=== PATIENT | female | born 1990 | race Caucasian/White ===

== ENCOUNTER 2019-02-08 17:21 | Inpatient (IN) | payer OTHER ==
[2019-02-08 20:43] VITALS: BMI 21.1
--- NOTE | 2019-02-08 22:20 | HP ---
CIWA Score - Admission Criteria [facility]AS Guidelines: Admission for Medically Managed Detox: Requires at least one of the followin. CIWA greater than 12 2. Seizures within the past 24 hours 3. Delirium tremens within the past 24 hours 4. Hallucinations within the past 24 hours 5. Acute intervention needed for co occurring medical disorder 6. Acute intervention needed for co occurring psychiatric disorder 7. Severe withdrawal that cannot be handled at a lower level of care (continued vomiting, continued diarrhea, abnormal vital signs) requiring intravenous medication and/or fluids 8. Admission ROS S - HPI Allergies/Adverse Reactions: Allergies Allergy/AdvReac Type Severity Reaction Status Date / Time No Known Allergies Allergy Verified 02/08/19 20:25 - Ebola screening Have you traveled outside of the country in the last 21 days: No Have you had contact with anyone from an Ebola affected area: No Patient History - Substances abused Heroin Substance route: Injection Frequency: Daily Amount used: 2 bundles Age of first use: 26 Date of last use: 02/07/19 Admission Physical Exam [facility] - Vital Signs Vital Signs: Vital Signs - 24 hr 02/08/19 20:33 Temperature 96.8 F L Pulse Rate 85 Respiratory 16 Rate Blood Pressure 97/70 Urine Drug Screen - Test Device Lot number: [id number] Expiration date: 10/07/20 - Control Is test valid?: Yes - Results Drug screen NEGATIVE: No Urine drug screen results: JONATHAN-Cocaine, MET-Methamphetamine, FEN-Fentanyl, MOP- Opiates
--- NOTE | 2019-02-08 22:25 | HP ---
COWS - Scale Resting Pulse: 1= [place] 81-100 Sweatin=Flushed/Facial Moisture Restless Observation: 1= Difficult to Sit Still Pupil Size: 1= Pupils >than Normal Bone or Joint Aches: 4=Acute Joint/Muscle Pain Runny Nose/ Eye Tearin= Runny Nose/Eyes GI Upset > 30mins: 2= Nausea/Diarrhea Tremor Observation: 4= Gross Tremor/Twitching Yawning Observation: 1= 1-2x During Session Anxiety or Irritability: 2=Irritable/Anxious Goose Flesh Skin: 0=Smooth Skin COWS Score: 20 CIWA Score - Admission Criteria OASAS Guidelines: Admission for Medically Managed Detox: Requires at least one of the followin. CIWA greater than 12 2. Seizures within the past 24 hours 3. Delirium tremens within the past 24 hours 4. Hallucinations within the past 24 hours 5. Acute intervention needed for co occurring medical disorder 6. Acute intervention needed for co occurring psychiatric disorder 7. Severe withdrawal that cannot be handled at a lower level of care (continued vomiting, continued diarrhea, abnormal vital signs) requiring intravenous medication and/or fluids 8. Admission ROS [facility] Chief Complaint: Heroin withdrawal symptoms Allergies/Adverse Reactions: Allergies Allergy/AdvReac Type Severity Reaction Status Date / Time No Known Allergies Allergy Verified 02/08/19 20:25 History of Present Illness: 29 years old checo with 2 years of heroin dependence is seeking admission to detox. Patient has been to previous detox, last at [place], [place] and reports insignificant period of sobriety. Patient denies medical history and denies suicidal ideation at this time. This is her first admission to [facility] Exam Limitations: Clinical Condition - Ebola screening Have you traveled outside of the country in the last 21 days: No Have you had contact with anyone from an Ebola affected area: No - Review of Systems Constitutional: Chills, Malaise, Night Sweats, Changes in sleep, Weakness EENT: reports: Sinus Pressure Respiratory: reports: No Symptoms reported Cardiac: reports: No Symptoms Reported GI: reports: Nausea, Poor Appetite, Poor Fluid Intake, Vomiting, Abdominal cramping : reports: No Symptoms Reported Musculoskeletal: reports: Back Pain Integumentary: reports: Dryness, Flushing Neuro: reports: Tremors Endocrine: reports: No Symptoms Reported Hematology: reports: No Symptoms Reported Psychiatric: reports: No Sypmtoms Reported, Anxious, Depressed Other Systems: Reviewed and Negative Patient History - Patient Medical History Hx Anemia: No Hx Asthma: No Hx Chronic Obstructive Pulmonary Disease (COPD): No Hx Cancer: No Hx Cardiac Disorders: No Hx Congestive Heart Failure: No Hx Hypertension: No Hx Hypercholesterolemia: No Hx Pacemaker: No HX Cerebrovascular Accident: No Hx Seizures: No Hx Dementia: No Hx Diabetes: No Hx Gastrointestinal Disorders: No Hx Liver Disease: No Hx Genitourinary Disorders: No Hx Sexually Transmitted Disorders: No Hx Renal Disease (ESRD): No Hx Thyroid Disease: No Hx Human Immunodeficiency Virus (HIV): No (Negatiive 2019) Hx Hepatitis C: No Hx Depression: Yes (Not on mediation) Hx Suicide Attempt: No (Denies suicidal ideation at this time) Hx Bipolar Disorder: Yes Hx Schizophrenia: No - Patient Surgical History Past Surgical History: No - PPD History Previous Implant?: Yes Documented Results: Negative w/o proof Implanted On Prior [facility] Admission?: Yes PPD to be Administered?: Yes - Reproductive History Patient is a Female of Child Bearing Age (11 -55 yrs old): Yes Last Menstrual Period: 01/23/19 Patient : No - Smoking Cessation Smoking history: Current every day smoker Have you smoked in the past 12 months: Yes Aproximately how many cigarettes per day: 3 Hx Chewing Tobacco Use: No Initiated information on smoking cessation: Yes 'Breaking Loose' booklet given: 02/08/19 - Substance & Tx. History Hx Alcohol Use: No Hx Substance Use: Yes Substance Use Type: Cocaine, Opiates Hx Substance Use Treatment: Yes ([facility]) - Substances abused Heroin Substance route: Injection Frequency: Daily Amount used: 2 bundles Age of first use: 26 Date of last use: 02/07/19 Family Disease History - Family Disease History Family History: Denies Admission Physical Exam [facility] - Vital Signs Vital Signs: Vital Signs - 24 hr 02/08/19 20:33 Temperature 96.8 F L Pulse Rate 85 Respiratory 16 Rate Blood Pressure 97/70 - Physical General Appearance: Yes: Moderate Distress, Anxious HEENTM: Yes: Within Normal Limits, Hearing grossly Normal Respiratory: Yes: Lungs Clear, Normal Breath Sounds, No Respiratory Distress Neck: Yes: Supple Breast: Yes: Breast Exam Deferred Cardiology: Yes: Regular Rhythm, Regular Rate Abdominal: Yes: Normal Bowel Sounds Genitourinary: Yes: Within Normal Limits Back: Yes: Normal Inspection Musculoskeletal: Yes: Within Normal Limits Extremities: Yes: Tremors Neurological: Yes: Within Normal Limits, Alert, Normal Mood/Affect Integumentary: Yes: Within Normal Limits, Warm Lymphatic: Yes: Within Normal Limits - Diagnostic (1) Opioid dependence with withdrawal Current Visit: Yes Status: Acute (2) Nicotine dependence Current Visit: Yes Status: Acute (3) Cocaine dependence with withdrawal Current Visit: Yes Status: Acute Cleared for Admission [facility] - Detox or Rehab [facility] Level of Care: Medically Managed Detox Regimen/Protocol: Methadone Urine Drug Screen - Test Device Lot number: [id number] Expiration date: 10/07/20 - Control Is test valid?: Yes - Results Drug screen NEGATIVE: No Urine drug screen results: JONATHAN-Cocaine, MET-Methamphetamine, FEN-Fentanyl, MOP- Opiates Inpatient Rehab Admission - Rehab Decision to Admit Inpatient rehab admission?: No
[2019-02-08] MEDS ORDERED: MENTHOL/PHENOL 1 EACH UD MM PRN (22:33)
[2019-02-08] MEDS ORDERED: ACETAMINOPHEN 325 MG TABLET (FP) PO PRN ×2 (22:33)
[2019-02-08] MEDS ORDERED: hydrOXYzine PAMOATE 25 MG CAPSULE (FP) PO PRN (22:33)
[2019-02-08] MEDS ORDERED: MAG HYDROX/AL HYDROX/SIMETH 30 ML UNIT-DOSE CUP PO PRN (22:33)
[2019-02-08] MEDS ORDERED: BISMUTH SUBSALICYLATE 524 MG/30 ML UD PO PRN (22:33)
[2019-02-08] MEDS ORDERED: IBUPROFEN 400 MG TABLET (FP) PO PRN (22:33)
[2019-02-08] MEDS ORDERED: MAGNESIUM CITRATE 300 ML BOTTLE PO PRN (22:33)
[2019-02-08] MEDS ORDERED: cloNIDine HCL 0.1 MG TABLET PO PRN (22:33)
[2019-02-08] MEDS ORDERED: METHADONE HCL 10 MG TABLET (FOR DETOX USE ONLY) PO ONE (22:33)
[2019-02-08] MEDS ORDERED: MAGNESIUM HYDROX 2400MG/30ML ORAL SUSPENSION 30 ML CUP PO PRN (22:33)
[2019-02-08] MEDS ORDERED: METHOCARBAMOL 500 MG TABLET PO PRN (22:33)
[2019-02-08] MEDS ORDERED: MELATONIN 5 MG TABLETS PO PRN (22:33)
[2019-02-08] MEDS ORDERED: TUBERCULIN PPD 5 TU/0.1ML VIAL ID ONE (23:26)
[2019-02-09] MEDS ORDERED: METHADONE HCL 10 MG TABLET (FOR DETOX USE ONLY) ONE (09:17)
[2019-02-09] MEDS ORDERED: METHADONE HCL 5 MG TABLET (FOR DETOX USE ONLY) ONE (09:17)
[2019-02-09] MEDS ORDERED: METHADONE (DETOX) 20 MG, METHADONE (DETOX) 5 MG PO ONE (10:00)
[2019-02-09 10:02] LABS: HEMATOCRIT 32.2 % (32.4-45.2); HEMOGLOBIN 10.5 GM/dL (10.7-15.3); MCH 27.4 pg (25.7-33.7); MCHC 32.7 g/dl (32.0-36.0); MEAN CELL VOLUME 83.7 fl (80-96); MEAN PLT VOLUME 8.1 fl (7.5-11.1); PLATELET COUNT 306 K/MM3 (134-434); RBC 3.85 M/mm3 (3.60-5.2); RDW 18.3 % (11.6-15.6)
[2019-02-09] MEDS: NICOTINE 14 MG/24 HOURS TOPICAL PATCH TD SCH (10:15)
[2019-02-09] MEDS: NICOTINE POLACRILEX 2 MG GUM BUC PRN ×4 (10:16→22:08)
[2019-02-09 10:17] LABS: ALBUMIN 2.9 g/dl (3.4-5.0); BILIRUBIN,TOTAL 0.2 mg/dL (0.2-1); BLOOD UREA NITROGEN 14.8 mg/dL (7-18); CALCIUM 8.6 mg/dL (8.5-10.1); CREATININE 0.8 mg/dL (0.55-1.3); TOT PROT 6.6 g/dl (6.4-8.2)
[2019-02-09] MEDS: PRENATAL VITAMINS W/ FOLIC ACID TABLET (FP) PO SCH (10:17)
--- NOTE | 2019-02-09 11:01 | PN ---
[facility]HS COWS - Scale Resting Pulse: 0= [place] 80 or Below Sweatin= Chills/Flushing Restless Observation: 3= Extraneous Movement Pupil Size: 0= Normal to Room Light Bone or Joint Aches: 4=Acute Joint/Muscle Pain Runny Nose/ Eye Tearin= None GI Upset > 30mins: 0= None Tremor Observation of Outstretched Hands: 1= Tremor [place], Not Seen Yawning Observation: 0= None Anxiety or Irritability: 2=Irritable/Anxious Goose Flesh Skin: 0=Smooth Skin COWS Score: 11 S Progress Note (SOAP) Subjective: ANXIETY, SWEATS, FATIGUE. Objective: 02/09/19 11:07 Vital Signs - 24 hr 02/08/19 02/08/19 02/09/19 20:33 23:20 00:30 Temperature 96.8 F L 96.8 F L Pulse Rate 85 81 Respiratory 16 16 18 Rate Blood Pressure 97/70 112/66 02/09/19 02/09/19 02/09/19 03:30 07:41 09:23 Temperature 98.1 F 97.9 F Pulse Rate 73 66 Respiratory 18 18 18 Rate Blood Pressure 100/55 L 105/54 L Laboratory Tests 02/08/19 02/09/19 02/09/19 22:15 07:50 07:50 WBC 5.0 RBC 3.85 Hgb 10.5 L Hct 32.2 L MCV 83.7 MCH 27.4 MCHC 32.7 RDW 18.3 H Plt Count 306 MPV 8.1 Sodium 136 Potassium 4.0 Chloride 102 Carbon Dioxide 30 Anion Gap 4 L BUN 14.8 Creatinine 0.8 Est GFR (CKD-EPI)AfAm 114.66 Est GFR (CKD-EPI)NonAf 98.93 Random Glucose 84 Calcium 8.6 Total Bilirubin 0.2 AST 33 ALT 62 H Alkaline Phosphatase 101 Total Protein 6.6 Albumin 2.9 L POC Urine HCG, Qual Negative H/H 10.5/32.2 ANEMIA Assessment: 02/09/19 11:11 WITHDRAWAL SX Plan: CONTINUE DETOX FEOSOL 325 MG PO DAILY
[2019-02-09] MEDS: FERROUS SO4 325 MG TABLET (FP) PO SCH (13:29)
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
[2019-02-09] MEDS ORDERED: buPROPion HCL 75 MG TABLET PO SCH (15:30)
[2019-02-09] MEDS: buPROPion HCL 75 MG TABLET PO SCH (18:44)
[2019-02-09] MEDS: QUEtiapine FUMARATE 200 MG TABLET PO SCH (22:05)
[2019-02-09] MEDS: THIAMINE HCL 100 MG TABLET (FP) PO SCH (22:05)
[2019-02-09] MEDS: OXcarbazepine 300 MG TABLET (UD) PO SCH (22:05)
[2019-02-09] MEDS: DIVALPROEX SODIUM 500 MG TABLET E.C. PO SCH (22:05)
--- NOTE | 2019-02-10 09:07 | PN ---
[facility]HS COWS - Scale Resting Pulse: 0= [place] 80 or Below Sweatin= Chills/Flushing Restless Observation: 1= Difficult to Sit Still Pupil Size: 1= Pupils >than Normal Bone or Joint Aches: 2= Severe Diffuse Aches Runny Nose/ Eye Tearin= Runny Nose/Eyes GI Upset > 30mins: 2= Nausea/Diarrhea Tremor Observation of Outstretched Hands: 2= Slight Tremor Visible Yawning Observation: 1= 1-2x During Session Anxiety or Irritability: 2=Irritable/Anxious Goose Flesh Skin: 0=Smooth Skin COWS Score: 14 S Progress Note (SOAP) Subjective: alert,irritable,anxious,interrupted sleep,tremor,pain in the body Objective: 02/10/19 09:06 Vital Signs Temperature 98.2 F 02/10/19 06:00 Pulse Rate 62 02/10/19 06:00 Respiratory Rate 18 02/10/19 06:00 Blood Pressure 97/48 L 02/10/19 06:00 O2 Sat by Pulse Oximetry (%) Laboratory Last Values WBC 5.0 K/mm3 (4.0-10.0) 02/09/19 07:50 RBC 3.85 M/mm3 (3.60-5.2) 02/09/19 07:50 Hgb 10.5 GM/dL (10.7-15.3) L 02/09/19 07:50 Hct 32.2 % (32.4-45.2) L 02/09/19 07:50 MCV 83.7 fl (80-96) 02/09/19 07:50 MCH 27.4 pg (25.7-33.7) 02/09/19 07:50 MCHC 32.7 g/dl (32.0-36.0) 02/09/19 07:50 RDW 18.3 % (11.6-15.6) H 02/09/19 07:50 Plt Count 306 K/MM3 (134-434) 02/09/19 07:50 MPV 8.1 fl (7.5-11.1) 02/09/19 07:50 Sodium 136 mmol/L (136-145) 02/09/19 07:50 Potassium 4.0 mmol/L (3.5-5.1) 02/09/19 07:50 Chloride 102 mmol/L (98-107) 02/09/19 07:50 Carbon Dioxide 30 mmol/L (21-32) 02/09/19 07:50 Anion Gap 4 MMOL/L (8-16) L 02/09/19 07:50 BUN 14.8 mg/dL (7-18) 02/09/19 07:50 Creatinine 0.8 mg/dL (0.55-1.3) 02/09/19 07:50 Est GFR (CKD-EPI)AfAm 114.66 02/09/19 07:50 Est GFR (CKD-EPI)NonAf 98.93 02/09/19 07:50 Random Glucose 84 mg/dL (74-106) 02/09/19 07:50 Calcium 8.6 mg/dL (8.5-10.1) 02/09/19 07:50 Total Bilirubin 0.2 mg/dL (0.2-1) 02/09/19 07:50 AST 33 U/L (15-37) 02/09/19 07:50 ALT 62 U/L (13-61) H 02/09/19 07:50 Alkaline Phosphatase 101 U/L (45-117) 02/09/19 07:50 Total Protein 6.6 g/dl (6.4-8.2) 02/09/19 07:50 Albumin 2.9 g/dl (3.4-5.0) L 02/09/19 07:50 POC Urine HCG, Qual Negative 02/08/19 22:15 RPR Titer Nonreactive (NONREACTIVE) 02/09/19 07:50 HIV 1&2 Antibody Screen Negative 02/09/19 07:50 HIV P24 Antigen Negative 02/09/19 07:50 Assessment: 02/10/19 09:07 withdrawal symptom Plan: continue detox
[2019-02-10] MEDS ORDERED: METHADONE HCL 10 MG TABLET (FOR DETOX USE ONLY) PO ONE (10:00)
[2019-02-10] MEDS: OXcarbazepine 300 MG TABLET (UD) PO SCH ×2 (10:28→22:40)
[2019-02-10] MEDS: DIVALPROEX SODIUM 500 MG TABLET E.C. PO SCH ×2 (10:28→22:40)
[2019-02-10] MEDS: PRENATAL VITAMINS W/ FOLIC ACID TABLET (FP) PO SCH (10:29)
[2019-02-10] MEDS: FERROUS SO4 325 MG TABLET (FP) PO SCH (10:29)
[2019-02-10] MEDS: NICOTINE 14 MG/24 HOURS TOPICAL PATCH TD SCH (10:29)
[2019-02-10] MEDS: buPROPion HCL 75 MG TABLET PO SCH (10:29)
[2019-02-10] MEDS: THIAMINE HCL 100 MG TABLET (FP) PO SCH (22:40)
[2019-02-10] MEDS: QUEtiapine FUMARATE 200 MG TABLET PO SCH (22:40)
[2019-02-11] MEDS ORDERED: METHADONE HCL 5 MG TABLET (FOR DETOX USE ONLY) ONE (09:23)
[2019-02-11] MEDS ORDERED: METHADONE HCL 10 MG TABLET (FOR DETOX USE ONLY) ONE (09:23)
[2019-02-11] MEDS ORDERED: METHADONE (DETOX) 10 MG, METHADONE (DETOX) 5 MG PO ONE (10:00)
[2019-02-11] MEDS: OXcarbazepine 300 MG TABLET (UD) PO SCH ×2 (10:49→22:20)
[2019-02-11] MEDS: DIVALPROEX SODIUM 500 MG TABLET E.C. PO SCH ×2 (10:50→22:20)
[2019-02-11] MEDS: FERROUS SO4 325 MG TABLET (FP) PO SCH (10:50)
[2019-02-11] MEDS: PRENATAL VITAMINS W/ FOLIC ACID TABLET (FP) PO SCH (10:50)
[2019-02-11] MEDS: NICOTINE 14 MG/24 HOURS TOPICAL PATCH TD SCH (10:50)
[2019-02-11] MEDS: buPROPion HCL 75 MG TABLET PO SCH (10:50)
--- NOTE | 2019-02-11 10:57 | PN ---
BHS COWS - Scale Resting Pulse: 0= [place] 80 or Below Sweatin= Chills/Flushing Restless Observation: 1= Difficult to Sit Still Pupil Size: 0= Normal to Room Light Bone or Joint Aches: 1= Mild Discomfort Runny Nose/ Eye Tearin= Nasal Congestion GI Upset > 30mins: 1= Stomach Cramp Tremor Observation of Outstretched Hands: 1= Tremor [place], Not Seen Yawning Observation: 1= 1-2x During Session Anxiety or Irritability: 1=Feels Anxious/Irritable Goose Flesh Skin: 0=Smooth Skin COWS Score: 8 BHS Progress Note (SOAP) Subjective: alert,irritable,anxious,interrupted sleep,pain in the body and back Objective: 02/11/19 10:56 Vital Signs Temperature 96.9 F L 02/11/19 06:21 Pulse Rate 68 02/11/19 06:21 Respiratory Rate 16 02/11/19 06:21 Blood Pressure 122/52 L 02/11/19 06:21 O2 Sat by Pulse Oximetry (%) Assessment: 02/11/19 10:57 withdrawal symptom Plan: continue detox
[2019-02-11] MEDS: THIAMINE HCL 100 MG TABLET (FP) PO SCH (22:21)
[2019-02-11] MEDS: QUEtiapine FUMARATE 200 MG TABLET PO SCH (22:21)
[2019-02-12 09:16] VITALS: BP 96/60; PULSE 78; TEMP 97.7
--- NOTE | 2019-02-12 09:56 | PN ---
BHS COWS - Scale Resting Pulse: 0= [place] 80 or Below Sweatin= Chills/Flushing Restless Observation: 1= Difficult to Sit Still Pupil Size: 0= Normal to Room Light Bone or Joint Aches: 1= Mild Discomfort Runny Nose/ Eye Tearin= None GI Upset > 30mins: 0= None Tremor Observation of Outstretched Hands: 0= None Yawning Observation: 1= 1-2x During Session Anxiety or Irritability: 2=Irritable/Anxious Goose Flesh Skin: 0=Smooth Skin COWS Score: 6 S Progress Note (SOAP) Subjective: c/o muscle pain, mild chills, and anxiety. Objective: 02/12/19 09:55 Vital Signs 02/12/19 02/12/19 02/12/19 03:30 07:40 09:13 Temperature 97 F L 97.7 F Pulse Rate 76 78 Respiratory 18 16 16 Rate Blood Pressure 100/61 96/60 Lab Results WBC 5.0 K/mm3 (4.0-10.0) 02/09/19 07:50 RBC 3.85 M/mm3 (3.60-5.2) 02/09/19 07:50 Hgb 10.5 GM/dL (10.7-15.3) L 02/09/19 07:50 Hct 32.2 % (32.4-45.2) L 02/09/19 07:50 MCV 83.7 fl (80-96) 02/09/19 07:50 MCHC 32.7 g/dl (32.0-36.0) 02/09/19 07:50 RDW 18.3 % (11.6-15.6) H 02/09/19 07:50 Plt Count 306 K/MM3 (134-434) 02/09/19 07:50 Sodium 136 mmol/L (136-145) 02/09/19 07:50 Potassium 4.0 mmol/L (3.5-5.1) 02/09/19 07:50 Chloride 102 mmol/L (98-107) 02/09/19 07:50 Carbon Dioxide 30 mmol/L (21-32) 02/09/19 07:50 Anion Gap 4 MMOL/L (8-16) L 02/09/19 07:50 BUN 14.8 mg/dL (7-18) 02/09/19 07:50 Creatinine 0.8 mg/dL (0.55-1.3) 02/09/19 07:50 Random Glucose 84 mg/dL (74-106) 02/09/19 07:50 Calcium 8.6 mg/dL (8.5-10.1) 02/09/19 07:50 Labs noted. Assessment: 02/12/19 09:55 AOX3, in no acute respiratory distress. Full ROM, ambulating in the unit. Mild withdrawal symptoms Plan: continue detox.
[2019-02-12] MEDS ORDERED: METHADONE HCL 10 MG TABLET (FOR DETOX USE ONLY) PO ONE (10:00)
[2019-02-12] MEDS: OXcarbazepine 300 MG TABLET (UD) PO SCH (11:09)
[2019-02-12] MEDS: buPROPion HCL 75 MG TABLET PO SCH (11:09)
[2019-02-12] MEDS: FERROUS SO4 325 MG TABLET (FP) PO SCH (11:10)
[2019-02-12] MEDS: DIVALPROEX SODIUM 500 MG TABLET E.C. PO SCH (11:10)
[2019-02-12] MEDS: NICOTINE 14 MG/24 HOURS TOPICAL PATCH TD SCH (11:13)
[2019-02-12] MEDS: PRENATAL VITAMINS W/ FOLIC ACID TABLET (FP) PO SCH (11:13)
--- NOTE | 2019-02-12 13:29 | DS ---
[facility] Detox Discharge Summary Admission Date: 02/08/19 Discharge Date: 02/12/19 - History Present History: Cocaine Dependence, Opioid Dependence Additional Comments: Pt is medically cleared and is discharged today. Pt completed her detox protocol. Pt was supposed to go home 02/13/19 but requested to leave today. Pt denies any complains at the moment. As per counselor's notes, pt is to follow- up with [facility]. Pt is encouraged to follow-up as discussed with her counselor. Pt verbalized understanding. Pt is alert and oriented x3, and in no respiratory distress. Pertinent Past History: Cocaine and heroine use disorder. - Physical Exam Results Vital Signs: Vital Signs Temperature 97.7 F 02/12/19 09:13 Pulse Rate 78 02/12/19 09:13 Respiratory Rate 16 02/12/19 09:13 Blood Pressure 96/60 02/12/19 09:13 O2 Sat by Pulse Oximetry (%) Lab Results WBC 5.0 K/mm3 (4.0-10.0) 02/09/19 07:50 RBC 3.85 M/mm3 (3.60-5.2) 02/09/19 07:50 Hgb 10.5 GM/dL (10.7-15.3) L 02/09/19 07:50 Hct 32.2 % (32.4-45.2) L 02/09/19 07:50 MCV 83.7 fl (80-96) 02/09/19 07:50 MCHC 32.7 g/dl (32.0-36.0) 02/09/19 07:50 RDW 18.3 % (11.6-15.6) H 02/09/19 07:50 Plt Count 306 K/MM3 (134-434) 02/09/19 07:50 Sodium 136 mmol/L (136-145) 02/09/19 07:50 Potassium 4.0 mmol/L (3.5-5.1) 02/09/19 07:50 Chloride 102 mmol/L (98-107) 02/09/19 07:50 Carbon Dioxide 30 mmol/L (21-32) 02/09/19 07:50 Anion Gap 4 MMOL/L (8-16) L 02/09/19 07:50 BUN 14.8 mg/dL (7-18) 02/09/19 07:50 Creatinine 0.8 mg/dL (0.55-1.3) 02/09/19 07:50 Random Glucose 84 mg/dL (74-106) 02/09/19 07:50 Calcium 8.6 mg/dL (8.5-10.1) 02/09/19 07:50 Labs reviewed. Pertinent Admission Physical Exam Findings: withdrawal symptoms. - Treatment Hospital Course: Detox Protocol Followed, Detoxed Safely, Responded well, Discharged Condition Good - Medication Discharge Medications: Ambulatory Orders Bupropion HCl [Wellbutrin -] 75 mg PO DAILY 02/08/19 Depakote - 500 mg PO BID 02/08/19 Oxcarbazepine 600 mg PO BID 02/08/19 Quetiapine Fumarate [Seroquel] 200 mg PO BID 02/08/19 Quetiapine Fumarate [Seroquel] 400 mg PO HS 02/08/19 - Diagnosis (1) Cocaine dependence with withdrawal Status: Acute (2) Opioid dependence with withdrawal Status: Acute (3) Substance induced mood disorder Status: Acute (4) Bipolar disorder Status: Chronic (5) Nicotine dependence Status: Chronic (6) PTSD (post-traumatic stress disorder) Status: Chronic - AMA Did Patient Leave Against Medical Advice: No
[2019-02-13] MEDS ORDERED: METHADONE HCL 5 MG TABLET (FOR DETOX USE ONLY) PO ONE (06:00)
== END 2019-02-12 12:30 | disposition home or self-care (01) | DRG 773 ==
LOC: YASAS 17:21 → Y6N 22:49
PROVIDERS: ADMIT Surgery; ATTEND Surgery
PROC: HZ2ZZZZ Detoxification Services for Substance Abuse Treatment (ICD-10-PCS; principal; 2019-02-08)
DX: F11.23 Opioid dependence with withdrawal (principal); F14.23 Cocaine dependence with withdrawal; F17.210 Nicotine dependence, cigarettes, uncomplicated; F19.24 Other psychoactive substance dependence with psychoactive substance-induced mood disorder; F19.282 Other psychoactive substance dependence with psychoactive substance-induced sleep disorder; F31.9 Bipolar disorder, unspecified; F43.10 Post-traumatic stress disorder, unspecified; F90.9 Attention-deficit hyperactivity disorder, unspecified type; D64.9 Anemia, unspecified
CPT/HCPCS: 36415; 80053; 80164; 81025; 85027; 86593; 87389

== ENCOUNTER 2020-11-15 16:04 | Inpatient (IN) | payer OTHER ==
[2020-11-15 19:08] VITALS: BMI 25.1
[2020-11-15] MEDS ORDERED: METHADONE HCL 10 MG TABLET (FOR DETOX USE ONLY) PO ONE (20:36)
[2020-11-15] MEDS ORDERED: BISMUTH SUBSALICYLATE 524 MG/30 ML UD PO PRN (20:36)
[2020-11-15] MEDS ORDERED: MENTHOL/PHENOL 1 EACH UD MM PRN (20:36)
[2020-11-15] MEDS ORDERED: MAG HYDROX/AL HYDROX/SIMETH 30 ML UNIT-DOSE CUP PO PRN (20:36)
[2020-11-15] MEDS ORDERED: NICOTINE POLACRILEX 2 MG GUM BUC PRN (20:36)
[2020-11-15] MEDS ORDERED: ACETAMINOPHEN 325 MG TABLET (FP) PO PRN ×2 (20:36)
[2020-11-15] MEDS ORDERED: MAGNESIUM HYDROX 2400MG/30ML ORAL SUSPENSION 30 ML CUP PO PRN (20:36)
[2020-11-15] MEDS ORDERED: ONDANSETRON *ODT* 4 MG TABLET SL PRN (20:36)
[2020-11-15] MEDS ORDERED: MAGNESIUM CITRATE 300 ML BOTTLE PO PRN (20:36)
[2020-11-15] MEDS ORDERED: IBUPROFEN 400 MG TABLET (FP) PO PRN (20:36)
[2020-11-15] MEDS: THIAMINE HCL 100 MG TABLET (FP) PO SCH (21:34)
[2020-11-15] MEDS: METHOCARBAMOL 500 MG TABLET PO PRN (21:35)
[2020-11-15] MEDS: MELATONIN 5 MG TABLETS PO SCH (21:35)
[2020-11-16] MEDS: METHOCARBAMOL 500 MG TABLET PO PRN ×2 (06:15→22:01)
[2020-11-16] MEDS ORDERED: METHADONE HCL 5 MG TABLET (FOR DETOX USE ONLY) ONE (08:46)
[2020-11-16] MEDS ORDERED: METHADONE HCL 10 MG TABLET (FOR DETOX USE ONLY) ONE (08:46)
[2020-11-16] MEDS ORDERED: METHADONE (DETOX) 20 MG, METHADONE (DETOX) 5 MG PO ONE (10:00)
[2020-11-16 10:16] LABS: HEMOGLOBIN 13.6 GM/dL (10.7-15.3); MCH 31.5 pg (25.7-33.7); MCHC 34.1 g/dl (32.0-36.0); MEAN CELL VOLUME 92.3 fl (80-96); MEAN PLT VOLUME 8.4 fl (7.5-11.1); PLATELET COUNT 309 K/MM3 (134-434); RBC 4.34 M/mm3 (3.60-5.2); RDW 12.6 % (11.6-15.6); WHITE BLOOD COUNT 5.8 K/mm3 (4.0-10.0)
[2020-11-16] MEDS: PRENATAL VITAMINS W/ FOLIC ACID TABLET (FP) PO SCH (10:17)
[2020-11-16 10:19] LABS: CALCIUM 9.4 mg/dL (8.5-10.1)
[2020-11-16 10:20] LABS: ALBUMIN 3.8 g/dl (3.4-5.0); BLOOD UREA NITROGEN 13.4 mg/dL (7-18)
[2020-11-16 10:25] LABS: BILIRUBIN,TOTAL 0.4 mg/dL (0.2-1); TOT PROT 7.3 g/dl (6.4-8.2)
[2020-11-16] MEDS: cloNIDine HCL 0.1 MG TABLET PO PRN (12:55)
[2020-11-16] MEDS: hydrOXYzine PAMOATE 25 MG CAPSULE (FP) PO PRN (15:05)
[2020-11-16] MEDS: QUEtiapine FUMARATE 50 MG TABLET PO SCH (21:56)
[2020-11-16] MEDS: MELATONIN 5 MG TABLETS PO SCH (21:56)
[2020-11-16] MEDS: THIAMINE HCL 100 MG TABLET (FP) PO SCH (22:37)
[2020-11-17] MEDS ORDERED: METHADONE HCL 10 MG TABLET (FOR DETOX USE ONLY) PO ONE (10:00)
[2020-11-17] MEDS: PRENATAL VITAMINS W/ FOLIC ACID TABLET (FP) PO SCH (10:16)
[2020-11-17] MEDS: hydrOXYzine PAMOATE 25 MG CAPSULE (FP) PO PRN ×3 (10:16→22:14)
[2020-11-17] MEDS: cloNIDine HCL 0.1 MG TABLET PO PRN (12:35)
[2020-11-17] MEDS: METHOCARBAMOL 500 MG TABLET PO PRN ×2 (13:29→22:14)
[2020-11-17] MEDS ORDERED: COLLOIDAL OATMEAL 1 BAR EACH TP PRN (14:32)
[2020-11-17] MEDS: QUEtiapine FUMARATE 50 MG TABLET PO SCH (22:14)
[2020-11-17] MEDS: MELATONIN 5 MG TABLETS PO SCH (22:14)
[2020-11-17] MEDS: THIAMINE HCL 100 MG TABLET (FP) PO SCH (22:15)
[2020-11-18] MEDS ORDERED: METHADONE HCL 5 MG TABLET (FOR DETOX USE ONLY) ONE (09:47)
[2020-11-18] MEDS ORDERED: METHADONE HCL 10 MG TABLET (FOR DETOX USE ONLY) ONE (09:48)
[2020-11-18] MEDS ORDERED: METHADONE (DETOX) 10 MG, METHADONE (DETOX) 5 MG PO ONE (10:00)
[2020-11-18 10:06] LABS: SARS-CoV-2 NAA Not Detected (Not Detected)
[2020-11-18] MEDS: PRENATAL VITAMINS W/ FOLIC ACID TABLET (FP) PO SCH (10:38)
[2020-11-18] MEDS: hydrOXYzine PAMOATE 25 MG CAPSULE (FP) PO PRN ×3 (10:41→22:21)
[2020-11-18] MEDS: METHOCARBAMOL 500 MG TABLET PO PRN ×2 (10:41→17:18)
[2020-11-18] MEDS ORDERED: QUEtiapine FUMARATE 25 MG TABLET ONE (21:07)
[2020-11-18] MEDS: QUEtiapine FUMARATE 50 MG TABLET PO SCH (22:21)
[2020-11-18] MEDS: THIAMINE HCL 100 MG TABLET (FP) PO SCH (22:21)
[2020-11-18] MEDS: MELATONIN 5 MG TABLETS PO SCH (22:21)
[2020-11-19] MEDS ORDERED: METHADONE HCL 10 MG TABLET (FOR DETOX USE ONLY) PO ONE (10:00)
[2020-11-19] MEDS: PRENATAL VITAMINS W/ FOLIC ACID TABLET (FP) PO SCH (11:11)
[2020-11-19] MEDS: METHOCARBAMOL 500 MG TABLET PO PRN ×2 (11:40→18:15)
[2020-11-19] MEDS: hydrOXYzine PAMOATE 25 MG CAPSULE (FP) PO PRN ×2 (11:41→18:16)
[2020-11-19] MEDS: QUEtiapine FUMARATE 50 MG TABLET PO SCH (23:17)
[2020-11-19] MEDS: THIAMINE HCL 100 MG TABLET (FP) PO SCH (23:17)
[2020-11-19] MEDS: MELATONIN 5 MG TABLETS PO SCH (23:17)
[2020-11-20] MEDS ORDERED: METHADONE HCL 5 MG TABLET (FOR DETOX USE ONLY) PO ONE (06:00)
[2020-11-20 07:31] VITALS: TEMP 97.7
[2020-11-20 09:48] VITALS: BP 98/57; PULSE 69
[2020-11-20] MEDS: PRENATAL VITAMINS W/ FOLIC ACID TABLET (FP) PO SCH (11:09)
== END 2020-11-20 12:25 | disposition home or self-care (01) | DRG 773 ==
LOC: YASAS 16:04 → Y6N 19:24
PROVIDERS: ADMIT Allergy & Immunology; ATTEND Allergy & Immunology
DX: F11.23 Opioid dependence with withdrawal (principal); F14.20 Cocaine dependence, uncomplicated; F17.210 Nicotine dependence, cigarettes, uncomplicated; F19.282 Other psychoactive substance dependence with psychoactive substance-induced sleep disorder; F19.24 Other psychoactive substance dependence with psychoactive substance-induced mood disorder; F31.9 Bipolar disorder, unspecified; F43.10 Post-traumatic stress disorder, unspecified; F90.9 Attention-deficit hyperactivity disorder, unspecified type; R73.9 Hyperglycemia, unspecified; Z62.810 Personal history of physical and sexual abuse in childhood
CPT/HCPCS: 36415; 80053; 81025; 85027; 86780; 93005; 93010; C9803; J0735; U0003; U0005

== ENCOUNTER 2021-05-14 11:25 | Inpatient (IN) | payer OTHER ==
[2021-05-14 12:25] VITALS: BMI 25.7
[2021-05-14] MEDS ORDERED: IBUPROFEN 400 MG TABLET (FP) PO PRN (12:34)
[2021-05-14] MEDS ORDERED: ONDANSETRON *ODT* 4 MG TABLET SL PRN (12:34)
[2021-05-14] MEDS ORDERED: ACETAMINOPHEN 325 MG TABLET (FP) PO PRN ×2 (12:34)
[2021-05-14] MEDS ORDERED: MAGNESIUM CITRATE 300 ML BOTTLE PO PRN (12:34)
[2021-05-14] MEDS ORDERED: cloNIDine HCL 0.1 MG TABLET PO PRN (12:34)
[2021-05-14] MEDS ORDERED: MAGNESIUM HYDROX 2400MG/30ML ORAL SUSPENSION 30 ML CUP PO PRN (12:34)
[2021-05-14] MEDS ORDERED: MAG HYDROX/AL HYDROX/SIMETH 30 ML UNIT-DOSE CUP PO PRN (12:34)
[2021-05-14] MEDS ORDERED: MENTHOL/PHENOL 1 EACH UD MM PRN (12:34)
[2021-05-14] MEDS ORDERED: BISMUTH SUBSALICYLATE 524 MG/30 ML PO PRN (12:34)
[2021-05-14] MEDS ORDERED: methaDONE HCL 10 MG TABLET (FOR DETOX USE ONLY) PO ONE (14:15)
[2021-05-14] MEDS: hydrOXYzine PAMOATE 25 MG CAPSULE (FP) PO SCH ×3 (15:19→22:20)
[2021-05-14] MEDS: METHOCARBAMOL 500 MG TABLET PO PRN (15:19)
[2021-05-14] MEDS: NICOTINE 10 MG CARTRIDGE (INHALER) IH PRN ×2 (17:24→22:21)
[2021-05-14 18:07] LABS: HEMATOCRIT 34.1 % (32.4-45.2); HEMOGLOBIN 11.7 GM/dL (10.7-15.3); MCH 30.4 pg (25.7-33.7); MCHC 34.3 g/dl (32.0-36.0); MEAN CELL VOLUME 88.7 fl (80-96); MEAN PLT VOLUME 7.5 fl (7.5-11.1); PLATELET COUNT 325 10^3/uL (134-434); RBC 3.85 M/mm3 (3.60-5.2); RDW 14.5 % (11.6-15.6); WHITE BLOOD COUNT 7.2 K/mm3 (4.0-10.0)
[2021-05-14 18:08] LABS: ALBUMIN 3.5 g/dl (3.4-5.0); BLOOD UREA NITROGEN 9.1 mg/dL (7-18); CALCIUM 8.7 mg/dL (8.5-10.1)
[2021-05-14 18:11] LABS: CREATININE 0.9 mg/dL (0.55-1.3)
[2021-05-14 18:13] LABS: BILIRUBIN,TOTAL 0.2 mg/dL (0.2-1); TOT PROT 7.2 g/dl (6.4-8.2)
[2021-05-14 19:47] LABS: HIV INTERPRETATION NEGATIVE (NEGATIVE)
[2021-05-14] MEDS: BACITRACIN 0.9 GM PACKET TP SCH (22:20)
[2021-05-14] MEDS: MELATONIN 5 MG TABLETS PO SCH (22:20)
[2021-05-14] MEDS: THIAMINE HCL 100 MG TABLET (FP) PO SCH (22:20)
[2021-05-14] MEDS: QUEtiapine FUMARATE 200 MG TABLET PO SCH (22:20)
[2021-05-15] MEDS: hydrOXYzine PAMOATE 25 MG CAPSULE (FP) PO SCH ×5 (07:27→22:02)
[2021-05-15] MEDS ORDERED: methaDONE HCL 10 MG TABLET (FOR DETOX USE ONLY) ONE (09:28)
[2021-05-15] MEDS: PRENATAL VITAMINS W/ FOLIC ACID TABLET (FP) PO SCH (10:52)
[2021-05-15] MEDS: BACITRACIN 0.9 GM PACKET TP SCH ×2 (10:53→22:02)
[2021-05-15] MEDS: THIAMINE HCL 100 MG TABLET (FP) PO SCH (22:02)
[2021-05-15] MEDS: QUEtiapine FUMARATE 200 MG TABLET PO SCH (22:02)
[2021-05-15] MEDS: MELATONIN 5 MG TABLETS PO SCH (22:03)
[2021-05-16] MEDS: hydrOXYzine PAMOATE 25 MG CAPSULE (FP) PO SCH ×5 (06:26→22:42)
[2021-05-16] MEDS ORDERED: methaDONE HCL 10 MG TABLET (FOR DETOX USE ONLY) PO ONE (10:00)
[2021-05-16] MEDS: PRENATAL VITAMINS W/ FOLIC ACID TABLET (FP) PO SCH (11:50)
[2021-05-16] MEDS: METHOCARBAMOL 500 MG TABLET PO PRN (11:51)
[2021-05-16] MEDS: BACITRACIN 0.9 GM PACKET TP SCH ×2 (13:36→22:42)
[2021-05-16] MEDS: THIAMINE HCL 100 MG TABLET (FP) PO SCH (22:42)
[2021-05-16] MEDS: QUEtiapine FUMARATE 200 MG TABLET PO SCH (22:42)
[2021-05-16] MEDS: MELATONIN 5 MG TABLETS PO SCH (22:42)
[2021-05-17] MEDS: hydrOXYzine PAMOATE 25 MG CAPSULE (FP) PO SCH ×2 (06:02→10:25)
[2021-05-17] MEDS ORDERED: methaDONE HCL 10 MG TABLET (FOR DETOX USE ONLY) ONE (09:41)
[2021-05-17] MEDS: PRENATAL VITAMINS W/ FOLIC ACID TABLET (FP) PO SCH (10:25)
[2021-05-17] MEDS: BACITRACIN 0.9 GM PACKET TP SCH ×2 (10:25→22:21)
[2021-05-17] MEDS: METHOCARBAMOL 500 MG TABLET PO PRN ×2 (12:35→22:22)
[2021-05-17] MEDS: hydrOXYzine PAMOATE 25 MG CAPSULE (FP) PO PRN ×2 (12:36→22:22)
[2021-05-17] MEDS: MELATONIN 5 MG TABLETS PO SCH (22:21)
[2021-05-17] MEDS: QUEtiapine FUMARATE 200 MG TABLET PO SCH (22:21)
[2021-05-17] MEDS: THIAMINE HCL 100 MG TABLET (FP) PO SCH (22:21)
[2021-05-17] MEDS: NICOTINE 10 MG CARTRIDGE (INHALER) IH PRN (22:23)
[2021-05-18] MEDS ORDERED: methaDONE HCL 10 MG TABLET (FOR DETOX USE ONLY) PO ONE (10:00)
[2021-05-18] MEDS: BACITRACIN 0.9 GM PACKET TP SCH ×2 (10:32→22:22)
[2021-05-18] MEDS: PRENATAL VITAMINS W/ FOLIC ACID TABLET (FP) PO SCH (10:33)
[2021-05-18] MEDS: METHOCARBAMOL 500 MG TABLET PO PRN ×2 (10:33→22:23)
[2021-05-18] MEDS: hydrOXYzine PAMOATE 25 MG CAPSULE (FP) PO PRN ×2 (10:33→22:23)
[2021-05-18] MEDS: QUEtiapine FUMARATE 200 MG TABLET PO SCH (22:22)
[2021-05-18] MEDS: THIAMINE HCL 100 MG TABLET (FP) PO SCH (22:22)
[2021-05-18] MEDS: MELATONIN 5 MG TABLETS PO SCH (22:22)
[2021-05-18 23:05] VITALS: PULSE 93
[2021-05-19 07:08] VITALS: BP 84/53; TEMP 97.8
== END 2021-05-19 10:59 | disposition home or self-care (01) | DRG 773 ==
LOC: YASAS 11:25 → Y3N 14:23
PROVIDERS: ADMIT Allergy & Immunology; ATTEND Allergy & Immunology
PROC: HZ2ZZZZ Detoxification Services for Substance Abuse Treatment (ICD-10-PCS; principal; 2021-05-14)
DX: F11.23 Opioid dependence with withdrawal (principal); F14.20 Cocaine dependence, uncomplicated; F17.210 Nicotine dependence, cigarettes, uncomplicated; F19.282 Other psychoactive substance dependence with psychoactive substance-induced sleep disorder; F19.24 Other psychoactive substance dependence with psychoactive substance-induced mood disorder; F31.9 Bipolar disorder, unspecified; F41.9 Anxiety disorder, unspecified; F43.10 Post-traumatic stress disorder, unspecified; F90.9 Attention-deficit hyperactivity disorder, unspecified type; G47.00 Insomnia, unspecified
CPT/HCPCS: 36415; 80053; 81025; 85027; 86780; 87389; C9803; Q0162; U0003; U0005

== ENCOUNTER 2025-05-29 17:17 | Inpatient (IN) | payer OTHER ==
[2025-05-29 17:59] VITALS: BMI 22.4
[2025-05-29] MEDS ORDERED: ACETAMINOPHEN 325 MG TABLET (FP) PO PRN (18:06)
[2025-05-29] MEDS ORDERED: BISMUTH SUBSALICYLATE 524 MG/30 ML PO PRN (18:06)
[2025-05-29] MEDS ORDERED: LOPERAMIDE HCL 2 MG CAPSULE PO PRN (18:06)
[2025-05-29] MEDS ORDERED: IBUPROFEN 400 MG TABLET (FP) PO PRN (18:06)
[2025-05-29] MEDS ORDERED: NICOTINE POLACRILEX 2 MG LOZENGE BC PRN (18:06)
[2025-05-29] MEDS ORDERED: POLYETHYLENE GLYCOL (HEALTHYLAX) 3350 17 GM PACKET PO PRN (18:06)
[2025-05-29] MEDS ORDERED: MAGNESIUM HYDROX 2400MG/30ML ORAL SUSPENSION 30 ML CUP PO PRN (18:06)
[2025-05-29] MEDS ORDERED: MAG HYDROX/AL HYDROX/SIMETH 30 ML UNIT-DOSE CUP PO PRN (18:06)
[2025-05-29] MEDS ORDERED: guaiFENesin 600 MG TABLET.ER (FP) PO PRN (18:06)
[2025-05-29] MEDS ORDERED: BENZONATATE 200 MG CAPSULE PO PRN (18:06)
[2025-05-29] MEDS ORDERED: DICYCLOMINE HCL 10 MG CAPSULE PO PRN (18:06)
[2025-05-29] MEDS ORDERED: NALOXONE (NARCAN) HCL 4 MG/0.1 ML SPRAY NS PRN (18:06)
[2025-05-29] MEDS ORDERED: BENZOCAINE/MENTHOL (CHLORASEPTIC ) LOZENGE MM PRN (18:06)
[2025-05-29] MEDS ORDERED: ONDANSETRON *ODT* 4 MG TABLET SL PRN (18:06)
[2025-05-29] MEDS: THIAMINE 100 MG TABLET PO SCH (22:01)
[2025-05-29] MEDS: MELATONIN 5 MG TABLETS PO SCH (22:01)
[2025-05-30] MEDS: PRENATAL VITAMINS W/ FOLIC ACID TABLET (FP) PO SCH (09:40)
[2025-05-30 12:38] LABS: MCHC 33.7 g/dl (32.2-35.5); MEAN CELL VOLUME 92.5 fl (79.4-94.8); MEAN PLT VOLUME 10.3 fl (9.4-12.3); RDW 11.9 % (12.1-16.8)
[2025-05-30 12:40] LABS: INR 1.04 (0.83-1.09); PROTHROMBIN TIME (PATIENT) 11.3 SEC (9.7-13.0)
[2025-05-30 13:19] LABS: GLUCOSE,RANDOM 85 mg/dL (74-106); TOT PROT 5.7 g/dl (6.4-8.2)
[2025-05-30 13:20] LABS: CO2 28 mmol/L (21-32)
[2025-05-30 13:22] LABS: ALK PHOS 89 U/L (40-150)
[2025-05-30 13:25] LABS: CREATININE 0.64 mg/dL (0.55-1.3); SGOT/AST 134 U/L (5-34); SGPT/ALT 43 U/L (0-55)
[2025-05-30] MEDS: hydrOXYzine PAMOATE 25 MG CAPSULE (FP) PO PRN (22:05)
[2025-05-30] MEDS: METHOCARBAMOL 500 MG TABLET PO PRN (22:05)
[2025-05-30] MEDS: BACITRACIN 0.9 GM PACKET TP ONE (23:17)
[2025-05-31] MEDS: BACITRACIN 0.9 GM PACKET TP SCH (21:26)
[2025-05-31] MEDS: GABAPENTIN 100 MG CAPSULE PO SCH (21:26)
[2025-05-31] MEDS: MIRTAZAPINE 15 MG TABLET (FP) PO SCH (21:26)
[2025-05-31] MEDS: OLANZapine 7.5 MG TABLET PO SCH (21:26)
[2025-05-31] MEDS: IBUPROFEN 600 MG TABLET (FP) PO PRN (21:27)
[2025-06-01] MEDS: GABAPENTIN 400 MG CAPSULE PO SCH (13:12)
[2025-06-02] MEDS: NICOTINE POLACRILEX 2 MG GUM BUC PRN (18:22)
[2025-06-02] MEDS: MIRTAZAPINE 30 MG TABLET PO SCH (21:23)
[2025-06-02] MEDS: GABAPENTIN 300 MG CAPSULE PO SCH (21:23)
[2025-06-03] MEDS ORDERED: MIRTAZAPINE 15 MG TABLET (FP) ONE (21:06)
[2025-06-04 06:36] VITALS: BP 113/72; PULSE 87; RESP 16; TEMP 97.9
== END 2025-06-04 08:42 | disposition home or self-care (01) | DRG 773 ==
LOC: YASAS 17:17 → Y3N 19:49
PROVIDERS: ADMIT Allergy & Immunology; ATTEND Allergy & Immunology
PROC: HZ2ZZZZ Detoxification Services for Substance Abuse Treatment (ICD-10-PCS; principal; 2025-05-29)
DX: F11.23 Opioid dependence with withdrawal (principal); F14.20 Cocaine dependence, uncomplicated; F17.210 Nicotine dependence, cigarettes, uncomplicated; F19.282 Other psychoactive substance dependence with psychoactive substance-induced sleep disorder; F19.24 Other psychoactive substance dependence with psychoactive substance-induced mood disorder; F31.9 Bipolar disorder, unspecified; F25.9 Schizoaffective disorder, unspecified; F43.10 Post-traumatic stress disorder, unspecified; F41.9 Anxiety disorder, unspecified; G47.00 Insomnia, unspecified
CPT/HCPCS: 36415; 80053; 80307; 85027; 85610; 86780; 93005; 93010